=== PATIENT | female | born 1970 | race Caucasian/White ===

== ENCOUNTER 2016-08-23 22:38 | Emergency (ER) | payer OTHER ==
[~2016-08-23] VITALS: Ht 162.6 cm; Wt 120.3 kg
[~2016-08-23 22:38] MED LIST: AMT50 PO; ATOR-22 PO; BIOTCAP2 SL; CYCL10TA6 PO; DICL50TA3 PO; FERR325T51 PO; IBUP-103 PO; LEVO25TA5 PO; MULTTAB58 PO; PREG1CAP28 PO; TYLOTC500 PO; VITAMIN B12 SL
[2016-08-23 22:43] VITALS: TEMP 36.5; Ht 162.6 cm; Wt 120.3 kg
--- NOTE | 2016-08-23 23:13 | EMERGENCY ROOM VISIT NOTE ---
History Report prepared by Ronit: Conner Marc Under the Supervision of: Dr. Brian Myers M.D. First contact with patient: 22:52 Chief Complaint: LEG PAIN,LEG INJURY Stated Complaint: LEFT LEG/KNEE PAIN History of Present Illness The patient is a 46 year old female who presents to the Emergency Room with complaints of left knee pain for the past two weeks. The pain became worse today and now radiates to the rest of the leg. The pain is sharp in nature. The patient notes that one week ago the knee gave out on her and she collapsed. She was cleaning when she first noticed the discomfort two weeks ago. The patient also describes a numb feeling in the left lower extremity. She has a history of left knee surgery many years ago with Dr. Harrison. Source of History: patient Onset: two weeks ago Position: knee (left) Quality: sharp Timing: worsening Associated Symptoms: + numbness Review of Systems See HPI for pertinent positives & negatives. A total of 6 systems reviewed and were otherwise negative. Past Medical & Surgical Medical Problems: (1) Asthma (2) Diabetes mellitus (3) Dyslipidemia (4) Hypothyroidism (5) Migraine Surgical Problems: (1) History of arthroscopy of right shoulder (2) History of carpal tunnel release (3) History of gastric bypass (4) History of tubal ligation (5) S/P left knee arthroscopy (6) Status post left foot surgery Family History No pertinent family history Social History Smoking Status: Never Smoker Housing Status: lives with family Current/Historical Medications Scheduled Amitriptyline Hcl (Elavil), 50 MG PO HS Atorvastatin (Lipitor), 1 TAB PO DAILY Biotin (Biotin 5000), 1 TAB SL DAILY Cyclobenzaprine Hcl (Flexeril), 1 TAB PO HS Diclofenac (Voltaren), 50 MG PO BID Ferrous Sulfate (Iron Supplement), 1 TAB PO BID Levothyroxine Sodium (Levothyroxine Sodium), 1 TAB PO DAILY Multiple Vitamin (Multivitamin), 1 TAB PO DAILY Pregabalin (Lyrica), 75 MG PO BID [Vitamin B12], 1 TAB SL BID Scheduled PRN Acetaminophen (Tylenol), 1,000 MG PO Q6 PRN for Pain Ibuprofen Tab (Advil), 600-800 MG PO BID PRN for Pain Allergies Coded Allergies: Naproxen (Unverified Allergy, Unknown, VOMITING AND HIVES, 02/06/14) Sumatriptan (Unverified Allergy, Unknown, "SHUTS MY SYSTEM DOWN", 02/06/14 ) Physical Exam Vital Signs Date Time Temp Pulse Resp B/P (MAP) Pulse Ox O2 Delivery O2 Flow Rate FiO2 08/23/16 23:47 84 20 134/94 96 08/23/16 22:43 36.5 95 18 139/105 95 Room Air Physical Exam GENERAL: Sitting on stretcher in no distress. NEURO: Awake, alert and oriented x 3, no focal motor deficits. EXTREMITIES: Left knee appears stable by testing, diffusely tender on exam without any large joint effusion, no erythema or cellulitis, patella is intact and stable, strong distal dorsalis pedis pulse on the left, no left leg edema. Medical Decision & Procedures ER Provider Diagnostic Interpretation: X-ray results as stated below per interpretation by me and the radiologist: LEFT KNEE 3 VIEWS CLINICAL HISTORY: Fall with left knee pain. FINDINGS: AP, crosstable lateral, and sunrise views of left knee are compared to study dated 11/21/2014. The skeletal structures are well mineralized. No fracture is seen. Mild degenerative narrowing is seen at the patellofemoral articulation. The medial and lateral compartment joint spaces appear preserved. There are tiny marginal osteophytes and small patellar enthesophytes. No joint effusion is seen. Mild soft tissue swelling is present around the knee. IMPRESSION: Mild soft tissue swelling with no radiographic evidence of left knee fracture. Electronically signed by: Brian Sy M.D. 08/23/2016 11:20 PM Dictated Date/Time: 08/23/2016 11:19 PM ED Course 2253: The patient was evaluated in room B12b. A complete history and physical exam was performed. 2335: The prescription drug monitoring program was evaluated for this patient. She was prescribe 20 hydrocodone on 07/30 and 10 hydrocodone on 08/05. 2345: Reassessed the patient. Discussed the discharge instructions with her. She verbalized understanding and agreement. The patient is ready for discharge. Medical Decision Differential diagnosis includes meniscus or ligamentous injury, fracture, joint effusion, instability, nerve impingement, vascular insufficiency. The patient presents with 2 weeks of left knee pain. Clinically, the knee seems stable. There was no neurovascular compromise distally. No large joint effusion, no evidence for cellulitis. Films of the left knee do not show evidence for effusion or for dislocation. No fracture was seen, no significant arthritis. The patient was placed in a knee immobilizer. She will ice the knee, Tylenol for pain was suggested. She was given information to contact orthopedics in a few days for a follow-up appointment. I did discuss the possibility of a ligamentous or meniscal injury with her. Medication Reconciliation: I attest that I have personally reviewed the patient' s current medication list. Blood Pressure Screening: Patient was found to have a mildly elevated blood pressure and was referred to their primary doctor for recheck and further treatment. [place] Drug Monitoring Program Search Results: patient reviewed within database Drug Monitoring Findings: She was prescribe 20 hydrocodone on 07/30 and 10 hydrocodone on 08/05. Impression Primary Impression: Left knee pain Scribe Attestation The scribe's documentation has been prepared under my direction and personally reviewed by me in its entirety. I confirm that the note above accurately reflects all work, treatment, procedures, and medical decision making performed by me. Departure Information Dispostion Home / Self-Care Referrals Serafin Gomes III, M.D. (PCP) Forms HOME CARE DOCUMENTATION FORM, IMPORTANT VISIT INFORMATION Patient Instructions My [facility] Additional Instructions wear the immobilizer when you are on your feet tylenol for pain ice for 30 minutes at a time to the knee for the next 3-4 days call and set up orthopedic appt--call thursday am films today were all ok Problem Qualifiers Primary Impression: Left knee pain
--- NOTE | 2016-08-23 23:21 | DIAGNOSTIC IMAGING REPORT ---
LEFT KNEE 3 VIEWS CLINICAL HISTORY: Fall with left knee pain. FINDINGS: AP, crosstable lateral, and sunrise views of left knee are compared to study dated 11/21/2014. The skeletal structures are well mineralized. No fracture is seen. Mild degenerative narrowing is seen at the patellofemoral articulation. The medial and lateral compartment joint spaces appear preserved. There are tiny marginal osteophytes and small patellar enthesophytes. No joint effusion is seen. Mild soft tissue swelling is present around the knee. IMPRESSION: Mild soft tissue swelling with no radiographic evidence of left knee fracture. Electronically signed by: Brian Sy M.D. 08/23/2016 11:20 PM Dictated Date/Time: 08/23/2016 11:19 PM
[2016-08-23 23:47] VITALS: BP 134/94; PULSE 84; O2SAT 96
== END 2016-08-23 23:45 | disposition home or self-care (01) ==
LOC: C.EDB 22:39
DX: M25.562 Pain in left knee (principal); J45.909 Unspecified asthma, uncomplicated; E11.9 Type 2 diabetes mellitus without complications; E78.5 Hyperlipidemia, unspecified; E03.9 Hypothyroidism, unspecified; G43.909 Migraine, unspecified, not intractable, without status migrainosus; Z98.84 Bariatric surgery status; Z79.899 Other long term (current) drug therapy